=== PATIENT | female | born 1985 | race Caucasian/White ===

== ENCOUNTER → 2016-08-09 | Outpatient (CLI) | payer BC | LOC: GMAJ 16:52 | PROVIDERS: ATTEND Family Medicine | DX: R53.83 Other fatigue (principal) ==

== ENCOUNTER → 2016-08-23 | Outpatient (CLI) | payer BC | END | disposition home or self-care (01) | LOC: GMAJ 14:42 | PROVIDERS: ATTEND Family Medicine | DX: M25.551 Pain in right hip (principal); M25.521 Pain in right elbow ==

== ENCOUNTER → 2017-07-06 | Outpatient (CLI) | payer OTHER | END | disposition home or self-care (01) | LOC: GMA 19:55 | PROVIDERS: ATTEND Nurse Practitioner Family | DX: N39.0 Urinary tract infection, site not specified (principal) ==

== ENCOUNTER → 2017-12-28 | Outpatient (CLI) | payer OTHER ==
--- NOTE | 2017-12-28 17:03 | US ---
EXAM DESCRIPTION: Abdomen,Complete CLINICAL HISTORY: RUQ PAIN COMPARISON: None Available.] TECHNIQUE: Complete abdominal ultrasound FINDINGS: Mild hepatic steatosis is observed. There is no focal hepatic mass. The gallbladder is well seen and unremarkable. There are no gallstones. There is no gallbladder wall thickening. The common bile duct is normal in caliber measuring 2.6 mm. Portions of the pancreas seen appear normal. The spleen is normal in appearance. The kidneys are normal in size, shape, and echotexture. The IVC and the proximal aorta are unremarkable. IMPRESSION: 1. Mild hepatic steatosis is observed. Electronically signed by: Jaylen Azul MD 12/28/2017 5:02 PM CDT
== END ==
LOC: US 15:55
PROVIDERS: ATTEND Nurse Practitioner Family
DX: R10.811 Right upper quadrant abdominal tenderness (principal); R11.2 Nausea with vomiting, unspecified; K76.0 Fatty (change of) liver, not elsewhere classified

== ENCOUNTER → 2019-01-08 | Outpatient (CLI) | payer OTHER ==
--- NOTE | 2019-01-08 11:03 | RAD ---
PROVIDED CLINICAL HISTORY/REASON FOR EXAM: M25.562/M25.552 Findings: Number of images: Four Location: Left knee Anterior plate and screws associated with the proximal left tibia. No evidence of hardware complication. No acute fracture. No dislocation. No significant joint effusion. Tiny scattered osteophytes. Lateral patellar subluxation and tilt. IMPRESSION: No evidence of acute process in the left knee. Electronically signed by: Jagjit Jaeger MD 01/08/2019 11:01 AM CDT
--- NOTE | 2019-01-08 11:05 | RAD ---
EXAM DESCRIPTION: Pelvis CLINICAL HISTORY: 33 years Female, M25.562/M25.552 COMPARISON: None. TECHNIQUE: AP radiograph of the pelvis was performed. FINDINGS: The pelvic ring appears grossly intact on this single AP radiograph. No acute fracture or dislocation. Bilateral sacroiliac joints appear normal. Bilateral hip joints appear normal. The visualized lumbo-sacral spine appears grossly unremarkable. IMPRESSION: Single AP radiograph of the pelvis demonstrates grossly intact pelvic ring. Electronically signed by: Marcos Duran MD 01/08/2019 11:02 AM CDT
== END ==
LOC: RAD 08:19
PROVIDERS: ATTEND Orthopaedic Surgery
DX: M25.562 Pain in left knee (principal); M25.552 Pain in left hip

== ENCOUNTER → 2019-06-19 | Outpatient (CLI) | payer OTHER | LOC: GMALS 10:25 | PROVIDERS: ATTEND Nurse Practitioner Acute Care | DX: Z79.890 Hormone replacement therapy (principal) ==

== ENCOUNTER → 2019-07-16 | Outpatient (CLI) | payer OTHER ==
--- NOTE | 2019-07-17 14:08 | US ---
EXAM DESCRIPTION: Breast,Right: Ultrasound. CLINICAL HISTORY: 34 yearsFemaleunspecified LUMP IN RIGHT BREAST UPPER OUTER QUADRANT increasing pain and occasional palpable lump. Remote family history of breast cancer. COMPARISON: None. TECHNIQUE: Transcutaneous scanning of the right breast utilizing hernandez-scale and Doppler modes. Scanning performed by the blending machine operator ; observation by Dr. Coe. FINDINGS: Skin marker placed on the 10:00 position of the middle third right breast where pain most severe. Approximately 6 cm from the nipple Mostly fibroglandular tissues with minimal fatty tissues. No dominant solid mass or distinct cyst. No large calcifications. Additional scanning at the same distance from the nipple, at 3:00 and 5:00 positions. Also mostly fibroglandular tissues. No dominant solid mass or distinct cyst. No overlying skin changes in either location. IMPRESSION: No suspicious or significant imaging findings. BI-RADS CATEGORY: 1 - NEGATIVE FOLLOW UP: The region of interest should be followed on clinical grounds and if noted to change in size or character, a directed follow-up ultrasound examination may be performed. Written communication explaining the findings and follow-up, will be mailed to the patient and referring health care provider. The FINDINGS and the FOLLOW-UP plan were reviewed in person with the patient after the examination. According to the [employer], yearly mammograms are recommended starting at age 40 and continuing as long as a woman is in good health. Any breast change noted on a breast self-exam should be reported promptly to the patient's healthcare provider. Breast MRI is recommended for women with an approximately 20-25% or greater lifetime risk of breast cancer, including women with a strong family history of breast or ovarian cancer and women who have been treated for Hodgkin's disease. Electronically signed by: Gregory Coe MD 07/17/2019 2:06 PM MEDICAL CASE MANAGER
== END ==
LOC: MAMMO 08:04
PROVIDERS: ATTEND Family Medicine
DX: N63.11 Unspecified lump in the right breast, upper outer quadrant (principal)

== ENCOUNTER 2020-05-08 09:28 | Emergency (ER) | payer OTHER ==
[2020-05-08] MEDS ORDERED: LEVALBUTEROL NEBS 1.25 MG/3 ML VIAL NEB ONE (09:46)
[2020-05-08] MEDS ORDERED: predniSONE 20 MG TAB PO ONE (09:46)
[2020-05-08] MEDS ORDERED: IPRATROPIUM/ALBUTEROL 3 ML VIAL NEB ONE (09:46)
--- NOTE | 2020-05-08 10:43 | RAD ---
Study: Single Frontal Radiograph of the Chest. Indication:covid asthma Comparison: September 16, 2007 Impression: Heart size normal. Patchy groundglass opacities throughout the right lung base and left midlung concerning for pneumonia but nonspecific. COVID-19 could give this appearance. No pleural effusion or pneumothorax. Electronically signed by: Kishore Villatoro MD 05/08/2020 10:41 AM [facility]
[2020-05-08] MEDS ORDERED: SODIUM CHLORIDE 0.9% 1000ML 1,000 ML IVS ONE (11:42)
[2020-05-08] MEDS ORDERED: ACETAMINOPHEN 500 MG TAB PO ONE (12:22)
--- NOTE | 2020-05-08 13:05 | ED.PDOC ---
History of Present Illness - General Chief Complaint: Respiratory Problem Stated Complaint: difficulty breathing Time Seen by Provider: 05/08/20 09:33 Source: patient Exam Limitations: no limitations - History of Present Illness Initial Comments: The patient is a 34-year-old female presents emergency room secondary to what appears to be acute coronavirus infection. The patient does have a history of asthma but has not been using any inhaler or breathing treatments. She has additionally had several episodes of nausea and vomiting over the last few days. She does feel like she is dehydrated. There was some concern for possible hypoxia however the patient's oxygen saturations have ranged from 93 to 100% since she arrived here. No evidence of respiratory distress. She does have mild scattered wheezes. No syncope or near syncope. No real chest pain. She has had low-grade fevers. Timing/Duration: other - 4 days Severity: moderate Improving Factors: nothing Worsening Factors: nothing Associated Symptoms: cough, headaches - With dehydration, loss of appetite, malaise Allergies/Adverse Reactions: Allergies Meperidine Allergy (Verified 05/08/20 09:37) Hydrocodone Adverse Reaction (Verified 02/19/16 20:40) Home Medications: Ambulatory Orders Cephalexin Monohydrate [Keflex] 500 mg PO Q8HR #20 cap 02/19/16 Levofloxacin [Levaquin] 500 mg PO DAILY #7 tab 02/19/16 Albuterol Inhaler [Ventolin Hfa Inhaler] 2 puff INH Q4H PRN #1 inh 05/08/20 Azithromycin 500 mg PO DAILY #5 tab 05/08/20 Ondansetron Odt [Zofran ODT] 4 mg PO Q8HR PRN #5 tab 05/08/20 Sucralfate Tab [Carafate Tab] 1 gm PO QID #120 tab 05/08/20 predniSONE [Prednisone] 20 mg PO DAILY #5 tab 05/08/20 Review of Systems - Review of Systems Constitutional: States: fever - Low-grade, malaise EENTM: States: nose congestion Respiratory: States: no symptoms reported Cardiology: States: no symptoms reported Gastrointestinal/Abdominal: States: nausea, vomiting Genitourinary: States: no symptoms reported Musculoskeletal: States: no symptoms reported - Body aches Skin: States: no symptoms reported Neurological: States: headache Endocrine: States: no symptoms reported All other Systems: No Change from Baseline Past Medical History (General) - Patient Medical History Hx Seizures: No Hx Stroke: No Hx Dementia: No Hx Asthma: Yes Hx of COPD: No Hx Cardiac Disorders: No Hx Congestive Heart Failure: No Hx Pacemaker: No Hx Hypertension: No Hx Thyroid Disease: No Hx Diabetes: No Hx Gastroesophageal Reflux: No Hx Renal Disease: No Hx of HIV: No Hx Hepatitis C: No Hx MRSA: No - Vaccination History Hx Tetanus, Diphtheria Vaccination: No Hx Influenza Vaccination: No Hx Pneumococcal Vaccination: No - Social History Hx Tobacco Use: No Hx Chewing Tobacco Use: No Hx Alcohol Use: No Hx Substance Use: No Hx Substance Use Treatment: No Hx Depression: Yes Hx Physical Abuse: No Hx Emotional Abuse: No Hx Suspected Abuse: No - Female History Hx Last Menstrual Period: 02/12/15 Patient : No Family Medical History - Family History Mother Family History: No Known Physical Exam - Physical Exam General Appearance: Alert, Comfortable, No apparent distress Eye Exam: bilateral normal Ears, Nose, Throat: hearing grossly normal, normal pharynx, nasal congestion Neck: full range of motion, supple Respiratory: no respiratory distress, no accessory muscle use, wheezing - Mild Cardiovascular/Chest: normal peripheral pulses, regular rate, rhythm, no edema Peripheral Pulses: radial,right: 2+, radial,left: 2+ Gastrointestinal/Abdominal: non tender, soft Rectal Exam: deferred Back Exam: no CVA tenderness, no vertebral tenderness Extremity: non-tender, normal inspection, no pedal edema, normal capillary refill Neurologic: billposter II-XII nml as tested, alert, normal mood/affect, oriented x 3 Skin Exam: normal color Comments: Vital Signs - 8 hr 05/08/20 05/08/20 05/08/20 09:42 10:30 11:30 Temperature 97.4 F L 98.6 F Pulse Rate [ 105 H 112 H 119 H right brachial] Respiratory 22 18 20 Rate Blood Pressure 116/92 125/88 122/86 [right brachial ] O2 Sat by Pulse 93 L 100 96 Oximetry 05/08/20 12:30 Temperature Pulse Rate [ 111 H right brachial] Respiratory 22 Rate Blood Pressure 125/89 [right brachial ] O2 Sat by Pulse 93 L Oximetry Progress - Progress Progress: 05/08/20 13:06 The patient is a 34-year-old female presents emergency room with a clinical syndrome consistent with coronavirus. She is not hypoxic and not in respiratory distress. Patient does have a history of asthma and is therefore going to be written for a Ventolin inhaler. She is also going to be placed on prednisone and azithromycin. She will be written for GI medications of Carafate and Zofran as well. She needs to keep her self well-hydrated. She did receive a liter of IV fluids here today. She does follow-up with her primary care doctor next week. ER warnings given for any significant worsening. [email or web address] [phone] - Results/Orders Results/Orders: Chest x-ray shows mild infiltrates to the right side possibly consistent with coronavirus. Laboratory Tests 05/08/20 05/08/20 05/08/20 10:05 10:05 10:05 WBC 5.1 RBC 4.34 Hgb 14.4 Hct 40.8 MCV 94.0 MCH 33.1 H MCHC 35.2 RDW 13.4 Plt Count 193 MPV 7.1 L Absolute Neuts (auto) 3.20 Absolute Lymphs (auto) 1.40 Absolute Monos (auto) 0.40 Absolute Eos (auto) 0.00 Absolute Basos (auto) 0.00 Neutrophils % 62.7 Lymphocytes % 27.2 Monocytes % 8.8 Eosinophils % 0.9 L Basophils % 0.4 PT INR PTT (SP) Fibrinogen D-Dimer, Quantitative Sodium 136 Potassium 3.8 Chloride 102 Carbon Dioxide 26 Anion Gap 11.8 L BUN 9 Creatinine 0.80 BUN/Creatinine Ratio 11.3 Random Glucose 123 H Serum Osmolality 272.0 L Calcium 8.3 L Magnesium 2.2 Ferritin 188.5 Total Bilirubin 0.6 AST 28 ALT 31 Alkaline Phosphatase 96 LD Total 167 Creatine Kinase 32 CK-MB (CK-2) 0.3 CK-MB (CK-2) % Not Reportable Troponin I < 0.02 C-Reactive Protein 1.0 B-Natriuretic Peptide < 15.0 Serum Total Protein 7.7 Albumin 3.7 Globulin 4.0 H Albumin/Globulin Ratio 0.9 L TSH 2.11 Serum HCG, Qual Urine Color Urine Appearance Urine pH Ur Specific [place] Urine Protein Urine Glucose (UA) Urine Ketones Urine Blood Urine Nitrite Urine Bilirubin Urine Urobilinogen Ur Leukocyte Esterase Urine RBC Urine WBC Ur Epithelial Cells Urine Bacteria Urine Mucus Group A Strep Rapid 05/08/20 05/08/20 05/08/20 10:05 10:05 10:05 WBC RBC Hgb Hct MCV MCH MCHC RDW Plt Count MPV Absolute Neuts (auto) Absolute Lymphs (auto) Absolute Monos (auto) Absolute Eos (auto) Absolute Basos (auto) Neutrophils % Lymphocytes % Monocytes % Eosinophils % Basophils % PT 9.8 INR < 1.00 PTT (SP) 25.4 Fibrinogen 450 H D-Dimer, Quantitative < 131.0 L Sodium Potassium Chloride Carbon Dioxide Anion Gap BUN Creatinine BUN/Creatinine Ratio Random Glucose Serum Osmolality Calcium Magnesium Ferritin Total Bilirubin AST ALT Alkaline Phosphatase LD Total Creatine Kinase CK-MB (CK-2) CK-MB (CK-2) % Troponin I C-Reactive Protein B-Natriuretic Peptide Serum Total Protein Albumin Globulin Albumin/Globulin Ratio TSH Serum HCG, Qual Negative Urine Color Yellow Urine Appearance Sl cloudy Urine pH 5.5 Ur Specific [place] 1.020 Urine Protein Trace Urine Glucose (UA) Negative Urine Ketones Negative Urine Blood Negative Urine Nitrite Negative Urine Bilirubin Negative Urine Urobilinogen 0.2 Ur Leukocyte Esterase Negative Urine RBC 1-3 Urine WBC 5-10 H Ur Epithelial Cells 30-40 Urine Bacteria 2+ H Urine Mucus Large Group A Strep Rapid 05/08/20 10:18 WBC RBC Hgb Hct MCV MCH MCHC RDW Plt Count MPV Absolute Neuts (auto) Absolute Lymphs (auto) Absolute Monos (auto) Absolute Eos (auto) Absolute Basos (auto) Neutrophils % Lymphocytes % Monocytes % Eosinophils % Basophils % PT INR PTT (SP) Fibrinogen D-Dimer, Quantitative Sodium Potassium Chloride Carbon Dioxide Anion Gap BUN Creatinine BUN/Creatinine Ratio Random Glucose Serum Osmolality Calcium Magnesium Ferritin Total Bilirubin AST ALT Alkaline Phosphatase LD Total Creatine Kinase CK-MB (CK-2) CK-MB (CK-2) % Troponin I C-Reactive Protein B-Natriuretic Peptide Serum Total Protein Albumin Globulin Albumin/Globulin Ratio TSH Serum HCG, Qual Urine Color Urine Appearance Urine pH Ur Specific [place] Urine Protein Urine Glucose (UA) Urine Ketones Urine Blood Urine Nitrite Urine Bilirubin Urine Urobilinogen Ur Leukocyte Esterase Urine RBC Urine WBC Ur Epithelial Cells Urine Bacteria Urine Mucus Group A Strep Rapid Negative Departure - Departure Clinical Impression: Coronavirus infection, Mild dehydration Asthma exacerbation Qualifiers: Asthma severity: mild Asthma persistence: intermittent Qualified Code(s): J45.21 - Mild intermittent asthma with (acute) exacerbation Disposition: Discharge to Home or Self Care Condition: Fair Departure Forms: ED Discharge - Pt. Copy, Patient Portal Self Enrollment Diet: regular diet Activity: increase activity as tolerated Referrals: Amador Kowalski MD [Primary Care Provider] - 1-2 Weeks Prescriptions: Ondansetron Odt [Zofran ODT] 4 mg PO Q8HR PRN #5 tab PRN Reason: Nausea--Moderate Azithromycin 500 mg PO DAILY #5 tab Sucralfate Tab [Carafate Tab] 1 gm PO QID #120 tab predniSONE [Prednisone] 20 mg PO DAILY #5 tab Albuterol Inhaler [Ventolin Hfa Inhaler] 2 puff INH Q4H PRN #1 inh PRN Reason: Shortness Of Breath Home Medications: Ambulatory Orders Cephalexin Monohydrate [Keflex] 500 mg PO Q8HR #20 cap 02/19/16 Levofloxacin [Levaquin] 500 mg PO DAILY #7 tab 02/19/16 Albuterol Inhaler [Ventolin Hfa Inhaler] 2 puff INH Q4H PRN #1 inh 05/08/20 Azithromycin 500 mg PO DAILY #5 tab 05/08/20 Ondansetron Odt [Zofran ODT] 4 mg PO Q8HR PRN #5 tab 05/08/20 Sucralfate Tab [Carafate Tab] 1 gm PO QID #120 tab 05/08/20 predniSONE [Prednisone] 20 mg PO DAILY #5 tab 05/08/20 Additional Instructions: The patient is a 34-year-old female presents emergency room with a clinical syndrome consistent with coronavirus. She is not hypoxic and not in respiratory distress. Patient does have a history of asthma and is therefore going to be written for a Ventolin inhaler. She is also going to be placed on prednisone and azithromycin. She will be written for GI medications of Carafate and Zofran as well. She needs to keep her self well-hydrated. She did receive a liter of IV fluids here today. She does follow-up with her primary care doctor next week. ER warnings given for any significant worsening.
[2020-05-08 13:36] VITALS: BP 129/81; TEMP 97.9; O2SAT 95
== END 2020-05-08 13:15 | disposition home or self-care (01) ==
LOC: ER 09:28
DX: U07.1 COVID-19 (principal); E86.0 Dehydration; J45.21 Mild intermittent asthma with (acute) exacerbation; F32.9 Major depressive disorder, single episode, unspecified; Z79.899 Other long term (current) drug therapy; Z88.5 Allergy status to narcotic agent; Z88.8 Allergy status to other drugs, medicaments and biological substances
CPT/HCPCS: 36415; 71045; 80053; 81001; 82550; 82553; 82728; 83615; 83735; 83880; 84443; 84484; 84703; 85025; 85379; 85384; 85610; 85730; 86140; 87040; 87070; 87880; 94640; J7030; J7512; J7614; J7620

== ENCOUNTER 2020-05-09 12:37 | Inpatient (IN) | payer OTHER ==
--- NOTE | 2020-05-09 12:38 | HP ---
SUPERVISING PHYSICIAN: Jose R Mccormack MD CHIEF COMPLAINT: Shortness of breath. HISTORY OF PRESENT ILLNESS: This is a 34-year-old female who was diagnosed with COVID-19 on 05-02-20. Since that time, her shortness of breath has gotten worse. She does have a history of asthma. She came to the Emergency Room yesterday after at home was noted to have O2 saturations of 88%. In the ER, her saturations improved to about 96% and she was sent home. She went back home and her saturations dropped again to about 88%. She contacted her primary care physician who recommended a direct admission. At time of examination, the patient is tearful, stating she is scared. She is also having some chest discomfort. She does have some shortness of breath, but O2 saturations are better on 2 liters via nasal cannula. PAST MEDICAL HISTORY: 1. Hypertension. 2. Asthma. 3. Migraines. 4. Endometriosis. 5. Lumbar disc disease. PAST SURGICAL HISTORY: 1. Hysterectomy with bilateral salpingo-oophorectomy. 2. Left knee surgery. MEDICATIONS: Please see [employer] list once verified in the computer. ALLERGIES: MEPERIDINE, HYDROCODONE. FAMILY HISTORY: Father with coronary artery disease. Mother of myocardial infarction. SOCIAL HISTORY: The patient has never smoked, does not drink alcohol and no illicit drugs. REVIEW OF SYSTEMS: CONSTITUTIONAL: Positive for fever, chills and fatigue. HEENT: Positive for nasal drainage, congestion, throat pain. No loss of taste or smell. RESPIRATORY: Positive for shortness of breath and cough. CARDIOVASCULAR: No chest pain, palpitations or peripheral edema. GASTROINTESTINAL: No nausea, vomiting, diarrhea, constipation or abdominal pain. GENITOURINARY: No dysuria, frequency or flank pain. ENDOCRINE: No polydipsia, polyuria or polyphagia. No heat or cold intolerance. MUSCULOSKELETAL: No joint pain, joint swelling or muscle cramps. NEUROLOGIC: Positive for headaches. No syncope or seizures. PHYSICAL EXAMINATION: GENERAL: This is a 34-year-old female in mild respiratory distress at this time. NEUROLOGIC: The patient is alert. LUNGS: Diminished, but otherwise clear to auscultation bilaterally. CARDIOVASCULAR: Regular rate and rhythm. Normal S1, S2. ABDOMEN: Soft. Positive bowel sounds. EXTREMITIES: Lower extremities with no edema. Pulses 2+. Capillary refill is less than 2 seconds. LABORATORY: Labs yesterday showed white count 5.1, hemoglobin 14.4, platelet count 193. D-dimer less than 131, fibrinogen 450. Chemistry unremarkable. CRP 1. RADIOLOGY: Chest x-ray with bilateral patchy opacities consistent with COVID- 19. IMPRESSION: 1. COVID pneumonitis. 2. Asthma with no apparent exacerbation. 3. Hypertension. PLAN: The patient will be admitted and placed on COVID-19 medications including Remdesivir, dexamethasone and empiric antibiotics with azithromycin and Rocephin. I placed her on Mucinex and on scheduled albuterol inhaler. She does not have any active wheezing, so I do not feel like she is necessarily having an asthma exacerbation along with this. Oxygenation is improved on O2. We will get serial labs and x-rays when indicated. I will resume her home medications once verified in the computer. #[id number] MTDD
[2020-05-09] MEDS ORDERED: REMDESIVIR 200 MG in SODIUM CHLORIDE 0.9% 250ML 250 ML IVPB ONE (12:56)
[2020-05-09] MEDS ORDERED: KETOROLAC TROMETHAMINE INJ 30 MG/ML VIAL IV ONE (12:58)
[2020-05-09] MEDS ORDERED: SODIUM CHLORIDE 0.9% (FLUSH) 10 ML SYG IV PRN (12:59)
[2020-05-09] MEDS ORDERED: IV SET AND CAP CHANGE INJ INJ SCH (13:00)
--- NOTE | 2020-05-09 13:33 | RAD ---
EXAM DESCRIPTION: Chest,1 View x-ray CLINICAL HISTORY: 34 years Female, COVID-19 COMPARISON: 05/08/2020 IMPRESSION: Heart size and pulmonary vascularity are within normal limits. Severe multifocal bilateral airspace opacities have slightly increased since the prior exam. The findings are consistent with worsening multifocal pneumonia, and consistent with reported history of Covid 19. No large pleural effusion or pneumothorax. No acute osseous abnormality. Electronically signed by: J Carlos Goyal MD 05/09/2020 1:31 PM [facility] [id number]
[2020-05-09] MEDS: DEXAMETHASONE INJ 10 MG/ML VIAL IV SCH (13:39)
[2020-05-09] MEDS: ENOXAPARIN SODIUM 40 MG/0.4 ML SYG SUBCU SCH (13:39)
[2020-05-09] MEDS ORDERED: ALBUTEROL INHALER 64 PUFF/8GM INH ONE (14:58)
[2020-05-09] MEDS: ALBUTEROL INHALER 64 PUFF/8GM INH SCH ×2 (15:00→20:00)
[2020-05-09] MEDS: cefTRIAXone SODIUM 1 GM in SODIUM CHL 0.9% 50ML MIN-BAG+ 50 ML IVPB SCH (17:11)
[2020-05-09] MEDS: AZITHROMYCIN IV 500 MG in SODIUM CHLORIDE 0.9% 250ML 250 ML IVPB SCH (17:11)
[2020-05-09] MEDS ORDERED: KETOROLAC TROMETHAMINE INJ 30 MG/ML VIAL IV SCH (22:00)
[2020-05-09] MEDS ORDERED: KETOROLAC TROMETHAMINE INJ 30 MG/ML VIAL ONE (22:12)
[2020-05-09] MEDS: KETOROLAC TROMETHAMINE INJ 30 MG/ML VIAL IV PRN (22:15)
[2020-05-10] MEDS: ALBUTEROL INHALER 64 PUFF/8GM INH SCH ×7 (01:08→23:49)
[2020-05-10] MEDS: DEXAMETHASONE INJ 10 MG/ML VIAL IV SCH (10:11)
[2020-05-10] MEDS ORDERED: PROMETHAZINE W/CODEINE SYR 5 ML UD PO ONE ×3 (10:21→20:41)
[2020-05-10] MEDS ORDERED: KETOROLAC TROMETHAMINE INJ 30 MG/ML VIAL ONE ×2 (10:21→18:20)
[2020-05-10] MEDS: PROMETHAZINE W/CODEINE SYR 5 ML UD PO PRN ×2 (10:26→20:44)
[2020-05-10] MEDS: KETOROLAC TROMETHAMINE INJ 30 MG/ML VIAL IV PRN ×2 (10:26→18:38)
--- NOTE | 2020-05-10 13:08 | PN ---
SUPERVISING PHYSICIAN: Jose R Mccormack MD DATE: 05/10/20 SUBJECTIVE: The patient is still not feeling really well. She complains of a significant cough and complain that her chest hurts with the cough. OBJECTIVE: VITAL SIGNS: Blood pressure 138/78, heart rate 96, respiratory rate 16, temperature 98.1, in fact, she has not had a fever over the last 24 yours, oxygen saturation 96% on 1 liter via nasal cannula. GENERAL: The patient is a 34 year-old female who appears ill in appearance and appears uncomfortable but she is not in any respiratory distress. NEUROLOGICAL: The patient is alert. LUNGS: Clear to auscultation bilaterally. HEART: Regular rate and rhythm, normal S1, S2. ABDOMEN: Soft, positive bowel sounds. EXTREMITIES: Lower extremities with no significant edema. LABORATORY: White count 8.2, hemoglobin 12.3, hematocrit 35.4, platelet count 192. D-dimer still less than 131. Chemistry: CRP is elevated slightly to 5.4 from 2.3. IMPRESSION: 1. COVID pneumonitis. 2. Asthma with no significant exacerbation. 3. Hypertension. PLAN: The patient is not actually requiring much oxygen at this time. Her labs are acceptable, however, she still does not feel very well. I will continue her Remdesivir, dexamethasone and empiric antibiotics. I have also placed her on scheduled albuterol inhaler for bronchodilation and Mucinex. Bronchial hygiene has been ordered as well. If we can wean her off the oxygen, she can likely go home tomorrow but will recheck her labs and x-rays tomorrow as well. #[id number] MTDD
[2020-05-10] MEDS: REMDESIVIR 100 MG in SODIUM CHLORIDE 0.9% 250ML 250 ML IVPB SCH (13:57)
[2020-05-10] MEDS: ENOXAPARIN SODIUM 40 MG/0.4 ML SYG SUBCU SCH (13:57)
[2020-05-10] MEDS: cefTRIAXone SODIUM 1 GM in SODIUM CHL 0.9% 50ML MIN-BAG+ 50 ML IVPB SCH (15:59)
[2020-05-10] MEDS: AZITHROMYCIN IV 500 MG in SODIUM CHLORIDE 0.9% 250ML 250 ML IVPB SCH (16:54)
[2020-05-10] MEDS ORDERED: guaiFENesin ER TAB 600 MG TAB ONE (21:31)
[2020-05-10] MEDS: guaiFENesin ER TAB 600 MG TAB PO SCH (21:32)
[2020-05-11] MEDS ORDERED: KETOROLAC TROMETHAMINE INJ 30 MG/ML VIAL ONE ×2 (01:10→12:10)
[2020-05-11] MEDS ORDERED: PROMETHAZINE W/CODEINE SYR 5 ML UD PO ONE ×3 (01:10→12:35)
[2020-05-11] MEDS: PROMETHAZINE W/CODEINE SYR 5 ML UD PO PRN ×2 (01:12→12:34)
[2020-05-11] MEDS: KETOROLAC TROMETHAMINE INJ 30 MG/ML VIAL IV PRN ×2 (01:12→12:39)
[2020-05-11] MEDS: ALBUTEROL INHALER 64 PUFF/8GM INH SCH ×3 (04:30→13:26)
[2020-05-11] MEDS ORDERED: guaiFENesin ER TAB 600 MG TAB ONE (09:11)
[2020-05-11] MEDS: DEXAMETHASONE INJ 10 MG/ML VIAL IV SCH (09:26)
[2020-05-11] MEDS: guaiFENesin ER TAB 600 MG TAB PO SCH (09:26)
--- NOTE | 2020-05-11 11:23 | RAD ---
PROCEDURE:XR CHEST 1 VIEW HISTORY:COVID-19 COMPARISON: May 09, 2020 FINDINGS: The heart appears unremarkable. There are stable patchy infiltrates. There are no new infiltrates. There is no evidence for effusion or pneumothorax. There are no acute bony or soft tissue abnormalities. IMPRESSION: Stable chest x-ray. Electronically signed by: Gabriel Gates MD 05/11/2020 11:21 AM [facility]
[2020-05-11 11:24] VITALS: BP 102/66; TEMP 97.6
[2020-05-11] MEDS: ENOXAPARIN SODIUM 40 MG/0.4 ML SYG SUBCU SCH (12:34)
[2020-05-11] MEDS: REMDESIVIR 100 MG in SODIUM CHLORIDE 0.9% 250ML 250 ML IVPB SCH (12:38)
[2020-05-11 16:06] VITALS: O2SAT 96
--- NOTE | 2020-05-11 21:56 | DS ---
SUPERVISING PHYSICIAN: Jose R Mccormack M.D. DISCHARGE DIAGNOSIS: 1. COVID-19 pneumonitis. 2. Asthma with no significant exacerbation. 3. Hypertension. HISTORY OF PRESENT ILLNESS: This is a 34-year-old female patient who was diagnosed with COVID-19 on 05-02-20. She has progressively had increasing shortness of breath. She does have a history of asthma. She presented to the Emergency Room and was noted to have an O2 saturation of 88%. Her saturations improved to 96% and she was sent home. She went back home and her saturations dropped again to the upper 80s. She contacted her primary care physician who recommended direct admission. At time of examination, the patient is tearful and stated that she was scared. She also had some chest discomfort with shortness of breath, but her O2 saturations are better on 2 liters nasal cannula. HOSPITAL COURSE: She was admitted and placed on COVID-19 medications that included Remdesivir, Dexamethasone, azithromycin and Rocephin. She was also given Mucinex and an Albuterol inhaler. She was placed on oxygen and that was weaned off slowly. Her labs were followed closely as per COVID-19 guidelines. Her labs stabilized. She was maintaining any oxygen saturation in the upper 90s on room air. She will be discharged home in stable condition with close followup with her primary care physician, Dr. Kowalski, in the next week to 10 days. LABORATORY: WBCs remained stable at 7.3 with hemoglobin 12.1 and hematocrit 34.9. She originally had a left shift on her differential that normalized. Fibrinogen was 439 and D-dimer was less than 131. Electrolytes were basically within normal limits. C reactive protein got as high as 5.4 and today was 3.2. Troponin was negative. Ferritin was within normal limits. Liver enzymes were within normal limits. Chest x-ray on admission showed multifocal bilateral airspace opacities slightly increased since the prior exam and consistent with worsening multifocal pneumonia and consistent with reported history of COVID-19. Her followup chest x-ray showed a stable chest x-ray. DISCHARGE PLAN: The patient will be discharged home in stable condition. She is to resume her previous diet and increase her activity as tolerated. She is to call Dr. Kowalski' office to set up a followup appointment. In addition to her routine medications she will be sent home on Dexamethasone, Cefdinir, azithromycin and Promethazine with codeine cough syrup. [place] [employer] was checked and there were no issues found. She is to return to the hospital or followup with Dr. Kowalski for any problems or complications. DISCHARGE MEDICATIONS: 1. Estradiol. 2. Duloxetine. 3. Meloxicam. 4. Metoprolol. 5. Dexamethasone. 6. Guaifenesin. 7. Cefdinir. 8. Albuterol inhaler. 9. Azithromycin tabs. 10. Promethazine with codeine cough syrup. #[id number] [facility]
== END 2020-05-11 14:00 | disposition home or self-care (01) | DRG 177 ==
LOC: OBSVTOIN 12:37 → MS 12:37
PROVIDERS: ADMIT Nurse Practitioner; ATTEND Nurse Practitioner Acute Care
PROC: XW033E5 Introduction of Remdesivir Anti-infective into Peripheral Vein, Percutaneous Approach, New Technology Group 5 (ICD-10-PCS; principal; 2020-05-09)
DX: U07.1 COVID-19 (principal); J12.89 Other viral pneumonia; J45.909 Unspecified asthma, uncomplicated; I10 Essential (primary) hypertension; Z88.5 Allergy status to narcotic agent; Z88.8 Allergy status to other drugs, medicaments and biological substances

== ENCOUNTER → 2020-05-23 | Outpatient (CLI) | payer OTHER ==
--- NOTE | 2020-05-24 10:02 | CT ---
EXAM:Chest w/o Contrast CLINICAL HISTORY: COVID-19 COMPARISON STUDY: Chest x-rays from May 09 and May 11, 2020 TECHNICAL: Non-contrast CT images were performed through the chest. Sagittal and coronal reconstructions were performed. FINDINGS: Vascular and organ evaluation is limited without IV contrast. Soft tissue or mediastinal windows demonstrate no mass or lymphadenopathy. The heart is not enlarged. The aorta is non-dilated. The limited images of the upper abdomen demonstrate a 7 mm exophytic hypodensity from the right superior kidney that is most likely a complex or hemorrhagic cyst.. Pulmonary parenchymal windows show patchy pulmonary parenchymal opacities within the upper lobes, lower lobes and right middle lobe. These densities are less prominent than the comparison chest x-rays. There is a nodule in the lateral aspect of the left upper lobe that measures 3.6 x 3.7 mm. No mass, consolidation, interstitial pulmonary edema, or pleural effusion. The trachea and major bronchial structures are negative. There are no acute osseous abnormalities. IMPRESSION: 1. Patchy bilateral infiltrates show improvement compared to the recent chest x-rays. 2. 3.6 x 3.7 mm left upper lobe pulmonary nodule. If the patient is at high risk for neoplasm, follow-up CT in 6-12 months. This exam was performed according to our departmental dose-optimization program, which includes automated exposure control, adjustment of the mA and/or kV according to patient size and/or use of iterative reconstruction technique. Electronically signed by: Jose Archer MD 05/24/2020 10:01 AM STRETCHER OPERATOR
== END ==
LOC: CT 07:57
PROVIDERS: ATTEND Family Medicine
DX: U07.1 COVID-19 (principal); R91.1 Solitary pulmonary nodule

== ENCOUNTER → 2020-06-17 | Outpatient (CLI) | payer OTHER | LOC: GMAJ 16:59 | PROVIDERS: ATTEND Family Medicine | DX: I47.1 Supraventricular tachycardia (principal) ==